=== PATIENT | female | born 1985 | race Caucasian/White ===

== ENCOUNTER 2016-08-22 18:40 | Emergency (ER) | payer BC ==
[~2016-08-22] VITALS: Ht 157.5 cm; Wt 50.0 kg
[2016-08-22] MEDS ORDERED: PYRIDIUM200 M2 PO (22:09)
[2016-08-22] MEDS ORDERED: KEFLEX750 M1 PO (22:12)
[2016-08-22 23:09] VITALS: BP 113/80
== END 2016-08-22 23:09 | disposition home or self-care (01) ==
LOC: ED 18:40
DX: N30.00 Acute cystitis without hematuria (principal); R33.9 Retention of urine, unspecified
CPT/HCPCS: J0696; J7030